=== PATIENT | female | born 1995 | race Caucasian/White ===

== ENCOUNTER 2023-04-02 00:14 | Day surgery (SDC) | payer OTHER, MEDICAID, SELFPAY ==
[2023-03-26 10:40] VITALS: BMI 31.6
--- NOTE | 2023-03-26 12:13 | PC.NURSE ---
Report to the Outpatient Waiting Room, entrance under the green pavilion located off [facility], at 0700 on 04-02-23. Planned Procedure Time: 0900. Time changes happen often and if your time is changed the preop area will call you the afternoon before. - You and your visitor will be asked to self-screen and do not enter if you have any COVID symptoms. - A mask is optional within the hospital at this time. Patients may have clear liquids (water, carbonated beverages, clear teas, apple juice) until 3 hours prior to surgery with a maximum of 20 ounces. - No food from midnight until time of surgery - Infants may have breast milk until 4 hours before surgery, infant formula 6 hours prior to surgery. - Children will be allowed to drink immediately following surgery. If applicable, please bring a bottle or sippy cup to assist with drinking. Juice, water, soda, and popsicles are readily available. For infants on formula, please bring formula the day of surgery. Pacifiers are allowed. Take the following medications with a SIP of water the morning of surgery: bupropion DO NOT STOP ANY OF YOUR OTHER PRESCRIPTION MEDICATIONS PRIOR TO SURGERY ?EXCEPT THE FOLLOWING Medications to discontinue per physician: vitamins and supplements Date to take last dose: 03-30-23 Please no make-up, nail tongan, hairspray, perfume, deodorant, or body powder the day of surgery. No jewelry (including any body piercings) or valuables the day of surgery, leave them at home. Please take a shower or bath the night before, or the morning of, surgery with an antibacterial soap. Wear comfortable, loose fitting clothing. Children are encouraged to wear pajamas. - Jewelry must be removed prior to entering the operating room. Rings and piercings that are not removed may be cut off. - The hospital will not accept responsibility for valuables. - Please leave all valuables, including medications, at home the day of surgery. If you are going home after surgery, a licensed maintenance truck driver must drive you home. - NO public transportation without another adult if you receive anesthesia. - We recommend that an adult stay with you for 24 hours following discharge. - We also recommend that you do not drive, make important decision, drink alcoholic beverages, or take any drugs that were not prescribed by your health care provider for at least 24 hours after your discharge time. For Pediatric surgeries, we recommend two adults accompany the child home. Follow any additional instructions given to you from your surgeon. If you or anyone in your household have experienced Covid symptoms in the past week, please notify your surgeon or the nurse liaison at the phone number below for possible testing. Telephone instructions given to Alecia Millan and asked if any additional questions and then verbalized understanding. Patient advised to call surgeon office or pre surgery nurse liaison [phone] if any additional questions.
--- NOTE | 2023-04-01 13:11 | WPDANESEPPF ---
Anes - Initial Pre Proc Eval Procedure: Operation Date: 04/02/23 07:30 Proposed Procedures p Hysteroscopy, Removal of Foreign Body With Insertion of Implantable Contraception - Angelo Burciaga MD Date/Time: 04/01/23 13:11 Surgeon: Angelo Burciaga MD Pre Op Diagnosis: Mechanical Complication of Intra Uterine (cont) Patient Data Age: 27 Gender: F Height: 1.65 m Weight: 86.18 kg Allergies Allergy/AdvReac Type Severity Reaction Status Date / Time Sulfa (Sulfonamide Allergy Intermediate Hives Verified 04/02/23 06:22 Antibiotics) latex Allergy Mild Rash Verified 04/02/23 06:22 adhesive AdvReac Mild Rash Verified 04/02/23 06:22 cefdinir AdvReac Mild Gastrointestinal Verified 04/02/23 06:22 Upset clindamycin AdvReac Mild Gastrointestinal Verified 04/02/23 06:22 Upset Home Medications Medication Instructions Recorded Confirmed Type bupropion HCl 300 mg 24 hr tablet, 300 mg PO QAM #30 tabs 11/29/19 04/02/23 Rx extended release pantoprazole 40 mg tablet,delayed 40 mg PO QAM #30 tabs 11/29/19 04/02/23 Rx release (Protonix) multivit with minerals-iron 18 1 tablet PO DAILY 03/26/23 04/02/23 History mg-folic ac 400 mcg-vit K 25 mcg tablet (Adults Multivitamin) prazosin 1 mg capsule 1 mg PO TID PRN PTSD 03/26/23 04/02/23 History Patient hx anesthesia problems: none Family hx anesthesia problems: none Results Review: All pre-operative results and documents have been reviewed as part of the pre-operative evaluation. [facility] Past Medical History Medical History (Updated 04/01/23 @ 13:12 by Mateo Melton DO) ADHD (attention deficit hyperactivity disorder), inattentive type Asthma Gastroesophageal reflux disease Palpitations PTSD (post-traumatic stress disorder) Surgical History Surgical History (Updated 04/01/23 @ 13:12 by Mateo Melton DO) History of tonsillectomy Family History Family History (Updated 09/01/18 @ 16:28 by DOCTOR UNKNOWN) Grandparent Diabetes mellitus, Onset Age: 66 Depression Hypertension, Onset Age: 66 Acute myocardial infarction Family history of malignant neoplasm Family history of chronic obstructive pulmonary disease Sibling Family history of mental disorder Depression Patient's sister is in good health Family history of irritable bowel syndrome Mother Depression Family history of migraine headaches Hypertension Father Patient's father is in good health Social History Social History Years smoked: 9 Smoking status: Former smoker Tobacco type: cigarettes and e-cigarettes/vaping Additional smoking assessment comments: patient currently still vapes Alcohol intake: current Alcohol use details: sometimes Substance use: current Substance use type: marijuana Living arrangements: alone Spiritual care concerns: No Anes - Eval Final PreProcedure Day of Procedure 04/01/23 13:11 Patient weight: obese Heart: regular rate and rhythm Lungs: clear to auscultation Airway: Mallampati scale class II Neurological: alert and oriented Last oral intake: >/= 8 hours ASA classification: II Emergent: no Anesthetic plan: proceed Anesthesia type and monitoring: general GIVS and standard monitoring Results Review: All pre-operative results and documents have been reviewed as part of the pre-operative evaluation. Informed Consent: The patient's anesthetic plan and its attendant risks and benefits were discussed with the patient/family/POA. Questions were solicited and answers provided to the satisfaction of the patient/family/POA.
[2023-04-02 06:38] VITALS: BP 144/86; PULSE 70; RESP 18; TEMP 36.9; O2SAT 100
[2023-04-02] MEDS: ACETAMINOPHEN 500 MG TABLET 1000 MG PO (06:47)
[2023-04-02] MEDS: LACTATED RINGERS 1,000 ML 30 ML IV CONT (06:56)
--- NOTE | 2023-04-02 07:12 | WPDHPUPDATE1 ---
History and Physical Update Update Date/Time: 04/02/23 07:12 History and Physical has been reviewed, including an updated exam of the patient. There are NO changes in the patient's condition. Risks, benefits, and alternatives have been discussed and questions answered. Patient agrees to proceed with procedure.
[2023-04-02] MEDS: LIDOCAINE HCL 1% LOCAL INJ 20 ML VIAL INFILTRATE (07:42)
[2023-04-02] MEDS: KETOROLAC 30 MG/ML VIAL (*BKC) IV PUSH (07:51)
[2023-04-02 07:55] VITALS: BP 130/82; PULSE 72; RESP 16; O2SAT 100
--- NOTE | 2023-04-02 08:04 | W.PM.PROC2 ---
Procedure Note - Detailed Date of Procedure 04/02/23 Pre-op Diagnosis Mechanical Complication of Intra Uterine (cont) Post-op Diagnosis Same Procedure Performed Hysteroscopic removal of IUD and IUD placement Surgeon Angelo Burciaga MD Anesthesia MAC Indications abnormal uterine bleeding Findings malpositioned IUD with IUD in the cervix Description of Procedure the patient was taken the operating room. She was prepped and draped in the dorsal lithotomy position after induction of mac anesthesia. A speculum was placed in the vagina. The cervix was grasped with a tenaculum. The cervix was dilated about 1 cm. The hysteroscope was inserted. The intrauterine cavity and endocervix were evaluated. Hysteroscope was withdrawn. the IUD was found in the cervix was grasped with a packing forceps. ParaGard IUD was placed in the intrauterine cavity in the usual fashion. Patient tolerated the procedure well. The speculum and tenaculum were removed. She was taken recovery room in stable condition. Sponge lap and needle counts were correct x2. Estimated Blood Loss 5 Drains No Packing No Pathology Yes Complications No immediate complications Condition Stable Disposition PACU
[2023-04-02 08:20] VITALS: BP 120/66; PULSE 62; RESP 18; O2SAT 99
[2023-04-02 08:45] VITALS: BP 133/74; PULSE 55; RESP 18
== END 2023-04-02 08:54 | disposition home or self-care (01) ==
PROVIDERS: Visit Provider Obstetrics & Gynecology
PROC: 0U5B8ZZ Destruction of Endometrium, Via Natural or Artificial Opening Endoscopic (ICD-10-PCS; CPT 58563; principal; 2023-04-02 07:30)
DX: T83.32XA Displacement of intrauterine contraceptive device, initial encounter (principal); F90.0 Attention-deficit hyperactivity disorder, predominantly inattentive type; J45.909 Unspecified asthma, uncomplicated; K21.9 Gastro-esophageal reflux disease without esophagitis; F43.10 Post-traumatic stress disorder, unspecified; F12.90 Cannabis use, unspecified, uncomplicated; E66.9 Obesity, unspecified; Z68.33 Body mass index [BMI] 33.0-33.9, adult; Z87.891 Personal history of nicotine dependence; Z98.890 Other specified postprocedural states; Z82.49 Family history of ischemic heart disease and other diseases of the circulatory system; Z80.0 Family history of malignant neoplasm of digestive organs; Y83.8 Other surgical procedures as the cause of abnormal reaction of the patient, or of later complication, without mention of misadventure at the time of the procedure
CPT/HCPCS: 58562; 58300; A9270; J1885; J2250; J2405; J2704; J3010; J7120